=== PATIENT | female | born 1945 | race Caucasian/White ===

== ENCOUNTER 2020-11-18 13:15 | Outpatient (CLI) | payer BC, MEDICARE ==
--- NOTE | 2020-11-18 14:21 | RAD ---
RIGHT TOES 3 VIEWS: HISTORY: Ulcer right 5th toe. FINDINGS: There is deformity of the distal 5th metatarsal, evidence for an old healed fracture. Minimal latera l soft tissue swelling at the 5th metacarpophalangeal joint level as well as minimal soft tissue swel ling of the distal 4th and 5th toes. No evidence for acute fracture or dislocation. IMPRESSION: 1. Minimal deformity distal 5th metatarsal. 2. Minimal soft tissue swelling 4th and 5th toes distally. Given ulcer, if there is concern for osteomyelitis, followup MRI exam is recommended. POS: OFF
== END 2020-11-18 13:16 | disposition home or self-care (01) ==
LOC: BICRAD 13:15
PROVIDERS: ATTEND Podiatrist
DX: L97.519 Non-pressure chronic ulcer of other part of right foot with unspecified severity (principal); M21.961 Unspecified acquired deformity of right lower leg; M79.89 Other specified soft tissue disorders